=== PATIENT | male | born 1995 | race African-American/Black ===

== ENCOUNTER 2019-02-17 00:41 | Emergency (ER) | payer SELFPAY ==
[2019-02-17] MEDS ORDERED: HALOPERIDOL 5 MG TABLET PO ONE (01:08)
[2019-02-17] MEDS ORDERED: LORAZEPAM 1 MG TABLET PO ONE (01:08)
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
[2019-02-17 01:38] LABS: ABSOLUTE BASOPHILS # (AUTO) 0.1 10^3/uL (0.0-0.2); ABSOLUTE EOSINOPHILS # (AUTO) 0.1 10^3/uL (0.0-0.6); ABSOLUTE LYMPHOCYTES (AUTO) 1.8 10^3/uL (0.5-4.7); ABSOLUTE MONOCYTES (AUTO) 0.5 10^3/uL (0.1-1.4); ABSOLUTE NEUT (AUTO) 1.9 10^3/uL (1.7-8.2); BASOPHILS % (AUTO) 1.2 % (0-2); EOSINOPHILS % (AUTO) 1.9 % (0-6); HEMATOCRIT 38.9 % (37.9-51.0); LYMPHOCYTES % (AUTO) 41.4 % (13-45); MEAN CORPUSCULAR HEMOGLOBIN 28.8 pg (27.0-33.4); MEAN CORPUSCULAR HGB CONC 33.3 g/dL (32.0-36.0); MEAN CORPUSCULAR VOLUME 86 fl (80-97); MONOCYTES % (AUTO) 11.8 % (3-13); PLATELET COUNT 205 10^3/uL (150-450); SEGMENTED NEUTROPHILS % (AUTO) 43.7 % (42-78); TOTAL CELLS COUNTED % (AUTO) 100 %; WHITE BLOOD COUNT 4.4 10^3/uL (4.0-10.5)
[2019-02-17 01:40] LABS: APPEARANCE,URINE CLEAR; BILIRUBIN,URINE NEGATIVE (NEGATIVE); COLOR,URINE YELLOW; GLUCOSE, URINE NEGATIVE (NEGATIVE); KETONES,URINE NEGATIVE (NEGATIVE); LEUKOCYTE ESTERASE,URINE NEGATIVE (NEGATIVE); NITRITE,URINE NEGATIVE (NEGATIVE); PROTEIN,URINE NEGATIVE (NEGATIVE); URINE SPECIFIC GRAVITY 1.013; UROBILINOGEN,URINE NEGATIVE mg/dL (<2.0)
[2019-02-17 01:52] LABS: ALBUMIN 4.5 g/dL (3.5-5.0); ALCOHOL < 10 mg/dL (NONE DETECTED); ALKALINE PHOSPHATASE 49 U/L (38-126); ANION GAP 11 (5-19); ASPARTATE AMINO TRANSFERASE 28 U/L (17-59); BILIRUBIN,DIRECT 0.1 mg/dL (0.0-0.4); BILIRUBIN,TOTAL 0.4 mg/dL (0.2-1.3); BLOOD UREA NITROGEN 12 mg/dL (7-20); CALCIUM 9.3 mg/dL (8.4-10.2); CARBON DIOXIDE 28 mmol/L (22-30); CHLORIDE 102 mmol/L (98-107); GLUCOSE 87 mg/dL (75-110); POTASSIUM 3.6 mmol/L (3.6-5.0); TOTAL PROTEIN 7.5 g/dL (6.3-8.2)
[2019-02-17 01:53] LABS: ACETAMINOPHEN < 10 ug/mL (10-30); SALICYLATE < 1.0 mg/dL (2.0-20.0)
[2019-02-17 03:45] LABS: URINE AMPHETAMINES SCREEN NEGATIVE; URINE BARBITURATES SCREEN NEGATIVE; URINE BENZODIAZEPINES SCREEN NEGATIVE; URINE COCAINE SCREEN NEGATIVE; URINE MARIJUANA (THC) SCREEN NEGATIVE; URINE METHADONE SCREEN NEGATIVE; URINE PHENCYCLIDINE SCREEN NEGATIVE
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
--- NOTE | 2019-02-17 13:09 | EKG REPORT ---
SEVERITY:- ABNORMAL ECG - SINUS RHYTHM FIRST DEGREE AV BLOCK : Confirmed by: Karissa Wilson MD 17-Feb-2019 13:08:52
[2019-02-17] MEDS ORDERED: BENZTROPINE MESYLATE 1 MG TABLET PO ONE (15:19)
[2019-02-17] MEDS: OLANZAPINE 5 MG TABLET PO SCH (18:24)
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
[2019-02-18] MEDS: OLANZAPINE 5 MG TABLET PO SCH ×2 (10:04→18:00)
[2019-02-18] MEDS: BENZTROPINE MESYLATE 1 MG TABLET PO SCH (10:04)
--- NOTE | 2019-02-18 11:29 | ER Document Report ---
Doctor's Note Notes: 02/18/19 11:27 I rounded on this 23yo male. Patient has no SI or HI. He has no other visual hallucinations. He has been eating and drinking without difficulty. He is urinating normally and having normal bowel moments. He has no other concerns or complaints. No acute changes since yesterday. Denies any headache, fever, neck pain, URI, sore throat, chest pain, palpitations, syncope, cough, shortness of breath, wheeze, dyspnea, abdominal pain, nausea/vomiting/diarrhea, urinary retention, dysuria, hematuria, or rash. General: A&O. Answers questions appropriately. Heart: RRR Lungs: CTAB Psych: Flat affect A/P: Continue monitoring and med rec's per MH. Waiting on further rec's from MH team. Normal diet Trying to find placement per MH team.
[2019-02-18] MEDS: CHLORPROMAZINE HCL 50 MG TABLET PO SCH ×3 (13:41→18:00)
--- NOTE | 2019-02-18 14:50 | PSYCHOLOGICAL NOTE ---
Psych Note - Psych Note Date seen by psych provider: 02/18/19 Time seen by psych provider: 10:05 Psych Note: Chart review conducted at 07:47. Patient reports "feeling fine." Patient was asked what had dad concerned enough to bring him to the ED. Patient responded, "I don't know." Clinician asked what had patient "so frustrated." Patient avoided eye contact by watching television. Patient stated, "I'm fine." Clinician asked about the door. Patient responded, "if it wasn't for that I wouldn't be in here." Clinician, again, inquired about the source of the frustration. Client avoided eye contact by watching television. Clinician asked how he was "feeling on the medications," to which patient responded, "I know this is serious, and then began to speak somewhat disorganized about "taking medications in here" and "not the same medications at home." Patient denies asking his prescriber to take him off of his previous mental health meds. Patient states "when my dad took me to garbage pick up worker my medications, they only gave me one." Patient stated that happened a week ago, not 3 months ago. Patient spoke in a somewhat disorganized manner when asked if he would continue these meds outside of the hospital. Initially patient agreed to take meds, then began speaking in a disorganized manner and avoided eye contact. Patient spoke of "finding out what's wrong with me." Clinician referenced [facility] ED diagnosis and asked "what are your thoughts about that?" At that point, patient asked clinician to leave the room. Patient expressed clinician was not "understanding me." Clinician responded using Rogerian techniques and asked patient to "help me understand where you are." Patient again requested clinician leave the room. Clinician complied with request and stated "I'll be back to check on you later." Patient is alert and oriented to person, place, time and somewhat to the severity of the circumstance. Mood is detached with flat affect as evidenced by patient turning his head from clinician and no emotional liability. Patient denies suicidal and homicidal ideation. Delusions are absent. There is no observed behavior that suggests patient is responding to internal stimuli. Eye contact is poor. Conversational speech is not within normal rate, tone, and prosody. Patient's tone of voice is monotone and with within outside normal rate, tone, and prosody. Intellectual ability appears to be within average range. Attention and concentration are poor. Insight, judgment, and impulse control are poor. Medication recommendations per [facility] contracted psychiatrist Dr. Venessa CASTORENA is as follows: Add Thorazine 50MG, every 8 hours; scheduled Continue Zyprexa 5MG, twice per day Continue Cogentin 1MG, one time daily Impression/Plan: Patient is not cleared from acute psychiatric services. Patient does meet IVC criteria per [place] GS 122C. Patient is not engaging with clinical for proper MSE to be conducted. Medication recommendations have been provided. Patient is somewhat argumentative. Patient is emotionally detached. Patient's ability to understand the seriousness of his mental health concerns seems limited as evidenced by somewhat disorganized thoughts and lack of desire to engage with clinician to discuss plan of care development. Patient will not answer questions related to auditory or visual hallucinations. It is recommended that IVC be maintained. Dr. Carpenter was consulted on the care and management of this patient; attending physician is in agreement with recommendations and disposition.
[2019-02-19] MEDS: OLANZAPINE 5 MG TABLET PO SCH (10:58)
[2019-02-19] MEDS: BENZTROPINE MESYLATE 1 MG TABLET PO SCH (10:58)
[2019-02-19] MEDS: CHLORPROMAZINE HCL 50 MG TABLET PO SCH ×3 (11:22→18:07)
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
[2019-02-19] MEDS ORDERED: OLANZAPINE 2.5 MG TABLET PO SCH (22:00)
[2019-02-20] MEDS ORDERED: OLANZAPINE 5 MG TABLET PO SCH (08:00)
[2019-02-20] MEDS: CHLORPROMAZINE HCL 50 MG TABLET PO SCH ×2 (09:43→13:21)
[2019-02-20] MEDS: BENZTROPINE MESYLATE 1 MG TABLET PO SCH (09:43)
--- NOTE | 2019-02-20 10:51 | ER Document Report ---
Doctor's Note Notes: 02/20/19 10:50 Re-evaluation performed this morning. Patient has no SI or HI. He has no other visual hallucinations. He has been eating and drinking without difficulty. He is urinating normally and having normal bowel moments. He has no other concerns or complaints. No acute changes. Denies any headache, fever, neck pain, URI, sore throat, chest pain, palpitations, syncope, cough, shortness of breath, wheeze, dyspnea, abdominal pain, nausea/vomiting/diarrhea, urinary retention, dysuria, hematuria, or rash. General: A&O. Answers questions appropriately. Pt resting calmly and has been since I have been seeing him recently. Heart: RRR Lungs: CTAB Psych: Flat affect A/P: Continue monitoring and med rec's per . I believe there is a discharge consideration today. Waiting on further rec's from MH team. Normal diet
--- NOTE | 2019-02-20 11:54 | PSYCHOLOGICAL NOTE ---
Psych Note - Psych Note Date seen by psych provider: 02/20/19 Time seen by psych provider: 08:25 - 1st attempt [id number] Psych Note: Reason for consult:Uncontrolled rages Patient amb with steady gait, a/ox3, patient sitting with arms crossed in triage chair. Father reports that patient "is having a rough time tonight." Patient states he is frustrated and angry, states, "I just don't want anybody else to get hurt, I'm just frustrated." Father reports patient saw a psychiatrist with [facility] who placed him on risperdone a month ago. Father reports patient is having a mental breakdown. Check in conducted with patient Patient demonstrates continued guarded thought content with poor eye contact. Patient does demonstrate some attempts at engaging in evaluations however once becomes agitated requests clinician to leave the room. Patient's father disclosed concern of the patient returning home as he has a young daughter in the home that is scared of the patient. Clinician provided resources to patient's father to start the process of obtaining Medicaid. Patient was asked if he would like to go voluntarily to [facility] for continued medication management for stabilization; patient declined stating that he would just rather go home. Clinician spoke with patient's father separately. He discloses the patient graduate high school and was on the basketball team. Problems did not occur until he went away to college. He reports that the first year everything was fine however the second year the patient got involved with the wrong people and started using drugs. He is unclear what drugs the patient was using other than marijuana. Updated Medication recommendations per [facility] contracted psychiatrist Dr. Venessa CASTORENA is as follows: Continue Thorazine 50MG, every 8 hours; scheduled Continue Zyprexa 5MG every morning Add Zyprexa 7.5mg every evening Continue Cogentin 1MG, one time daily Impression/Plan: Patient is recommended for continued IVC for overnight mental health observation; with probable discharge tomorrow. Medication adjustment has been provided. Patient has not had any behavioral outburst however does only minimally engage in evaluation. Dr. Carpenter was consulted on the care and management of this patient; attending physician is in agreement with recommendations and disposition.
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
[2019-02-20 14:27] VITALS: BP 125/70
== END 2019-02-20 14:27 | disposition home or self-care (01) ==
LOC: ER 00:41
DX: R45.6 Violent behavior (principal); F20.0 Paranoid schizophrenia; Y09 Assault by unspecified means; Z87.891 Personal history of nicotine dependence
CPT/HCPCS: 93005; 36415; 80307 ×4; 85025; 80053; 81001; 93010; J3490 ×3; 99285